=== PATIENT | male | born 1990 | race Two or more races ===

== ENCOUNTER 2023-05-27 06:58 | Emergency (ER) | payer OTHER ==
[~2023-05-27] VITALS: Ht 180.3 cm; Wt 54.4 kg
== END 2023-05-27 08:44 | disposition home or self-care (01) ==
LOC: ER 06:59
DX: J06.9 Acute upper respiratory infection, unspecified (principal)

== ENCOUNTER 2023-06-07 10:06 | Emergency (ER) | payer OTHER ==
[~2023-06-07] VITALS: Ht 180.3 cm; Wt 54.4 kg
[2023-06-07 14:41] LABS: HEMATOCRIT 42.1 % (39.0-48.0); HEMOGLOBIN 14.4 g/dL (13-16.00); MEAN CELL VOLUME 91.9 fL (80.0-100.00); MEAN CORPUSCULAR HEMOGLOBIN 31.4 pg (27.00-32.0); MEAN CORPUSCULAR HGB CONC 34.1 g/dl (32.0-36.0); PLATELET COUNT 206 K/uL (150-450); RED BLOOD COUNT 4.58 M/uL (4.00-6.00); RED CELL DISTRIBUTION WIDTH 12.9 % (11.5-14.5)
== END 2023-06-07 16:05 | disposition home or self-care (01) ==
LOC: ER 10:07
PROVIDERS: General Practice
DX: U07.1 COVID-19 (principal); R53.81 Other malaise